=== PATIENT | female | born 1965 | race Asian ===

== ENCOUNTER 2018-03-14 04:19 | Emergency (ER) | payer OTHER ==
[~2018-03-14] VITALS: Ht 160 cm; Wt 54.9 kg
--- NOTE | 2018-03-14 04:42 | NUR ---
PT PRESENTED TO THE ER WITH A C/O HIGH BP, RT SIDED HEADACHE, AND DIZZINESS ACID REMOVER. PT APPEARS ANXIOUS. PT STATED THAT SHE TOOK 4 BENAZAPRIL 5MG TAB SINCE 2200 LAST NIGHT UP TO AN HOUR AGO. PT ALSO TOOK 2 81MG ASPIRIN. PT DID NOT TAKE ANY PAIN MEDICATION FOR THE HEADACHE.
[2018-03-14 04:58] LABS: BASOPHILS % (AUTO) 0.5 % (0.0-2.0); EOSINOPHILS % (AUTO) 3.9 % (0.0-6.0); HEMATOCRIT 45 % (33-45); HEMOGLOBIN 15.4 g/dL (11.5-14.8); LYMPHOCYTES # (AUTO) 2.7 /CMM (0.8-4.8); LYMPHOCYTES % (AUTO) 41.9 % (20.0-44.0); MEAN CORPUSCULAR HGB CONC 34 g/dl (31.0-36.0); MEAN CORPUSCULAR VOLUME 89 fL (82-100); MONOCYTES # (AUTO) 0.4 /CMM (0.1-1.30); MONOCYTES % (AUTO) 5.8 % (2.0-12.0); NEUTROPHILS # (AUTO) 3.1 /CMM (1.8-8.9); NEUTROPHILS % (AUTO) 47.9 % (43.0-81.0); PLATELET COUNT (AUTO) 235 /CMM (150-450); RED BLOOD CELL COUNT(AUTO) 5.03 MIL/uL (4.0-5.2); WHITE BLOOD COUNT (AUTO) 6.4 K/uL (4.3-11.0)
[2018-03-14] MEDS ORDERED: hydrALAZINE HCL IV 20 MG VIAL ONE (04:59)
[2018-03-14] MEDS ORDERED: HYDROMORPHONE INJ 0.5 MG/0.5 ML SYRINGE IV ONE (05:00)
[2018-03-14] MEDS ORDERED: hydrALAZINE HCL IV 20 MG VIAL IV ONE (05:00)
[2018-03-14] MEDS ORDERED: ONDANSETRON HCL/PF - ER 4 MG/2 ML VIAL IV ONE (05:00)
--- NOTE | 2018-03-14 05:08 | NUR ---
PT LEFT FOR CT VIA [facility]
[2018-03-14 05:12] LABS: ALANINE AMINOTRANSFERASE 26 U/L (12-78); ALBUMIN 4.2 g/dL (3.4-5.0); ALKALINE PHOSPHATASE 79 U/L (46-116); ASPARTATE AMINOTRANSFERASE 12 U/L (15-37); BILIRUBIN,DIRECT 0.1 mg/dL (0.0-0.2); BILIRUBIN,TOTAL 0.5 mg/dL (0.2-1.0); CALCIUM, SERUM 9.3 mg/dL (8.5-10.1); CARBON DIOXIDE 23 mmol/L (21-32); CHLORIDE 103 mmol/L (98-107); CREATININE 0.7 mg/dL (0.6-1.3); GLUCOSE 103 mg/dL (74-106); POTASSIUM 3.5 mmol/L (3.5-5.1); SODIUM SERUM 137 mmol/L (136-145); TOTAL PROTEIN, SERUM 7.6 g/dL (6.4-8.2); UREA NITROGEN, BLOOD 14 mg/dL (7-18)
--- NOTE | 2018-03-14 05:16 | NUR ---
PT RETURNED FROM CT.
[2018-03-14] MEDS ORDERED: HYDROMORPHONE INJ 2 MG/ML DISP.SYRIN ONE (05:22)
[2018-03-14] MEDS ORDERED: ONDANSETRON HCL/PF 4 MG/2 ML VIAL ONE (05:22)
--- NOTE | 2018-03-14 05:23 | NUR ---
PT IS REC'ING MEDICATION ORDERED.
--- NOTE | 2018-03-14 05:27 | NUR ---
PT REFUSED PAIN MEDICATION.
--- NOTE | 2018-03-14 05:56 | NUR ---
IV removed. Catheter intact and site benign. Pressure and 4x4 applied to site. No bleeding noted. Patient discharged to home in stable condition. Written and verbal after care instructions given. Patient verbalizes understanding of instruction. PT WAS INSTRUCTED TO INCREASE HER BENAZAPRIL TO 10MG DAILY, PER DR. RIOS. PT HAD SHEPHERD 2-05/07 AND WILL TAKE TYLENOL AT HOME. VSS. PT AMBULATED OUT WITH A STEADY GAIT.
[2018-03-14 05:57] VITALS: BP 166/74
== END 2018-03-14 05:58 | disposition home or self-care (01) ==
LOC: ER 04:23
DX: R51 Headache (principal); I10 Essential (primary) hypertension; F41.9 Anxiety disorder, unspecified; E78.1 Pure hyperglyceridemia
CPT/HCPCS: 36415; 70450-TC; 71045-TC; 80048-TC; 80076-TC; 82962-TC; 84484-TC; 85025-TC; 85730-TC; J0360; J1170; J2405

== ENCOUNTER 2018-07-04 16:15 | Emergency (ER) | payer OTHER ==
[~2018-07-04] VITALS: Ht 160 cm; Wt 54.4 kg
--- NOTE | 2018-07-04 16:30 | NUR ---
patient presented to the ER c/o dizziness, on room air, breathing evenly and unlabored. connected to the monitor and pulse ox. Ambulatory with steady giat. Kept comfortable, will continue to monitor accordingly.
[2018-07-04 16:51] LABS: BASOPHILS # (AUTO) 0.1 /CMM (0.0-0.2); BASOPHILS % (AUTO) 0.9 % (0.0-2.0); EOSINOPHILS % (AUTO) 4.1 % (0.0-6.0); HEMATOCRIT 44 % (33-45); HEMOGLOBIN 14.9 g/dL (11.5-14.8); LYMPHOCYTES # (AUTO) 1.9 /CMM (0.8-4.8); LYMPHOCYTES % (AUTO) 29.1 % (20.0-44.0); MEAN CORPUSCULAR HGB CONC 34 g/dl (31.0-36.0); MEAN CORPUSCULAR VOLUME 89 fL (82-100); MONOCYTES # (AUTO) 0.4 /CMM (0.1-1.30); NEUTROPHILS % (AUTO) 59.9 % (43.0-81.0); PLATELET COUNT (AUTO) 271 /CMM (150-450); RED BLOOD CELL COUNT(AUTO) 4.87 MIL/uL (4.0-5.2); WHITE BLOOD COUNT (AUTO) 6.7 K/uL (4.3-11.0)
[2018-07-04 16:56] LABS: CALCIUM, SERUM 9.2 mg/dL (8.5-10.1); CARBON DIOXIDE 25 mmol/L (21-32); CHLORIDE 102 mmol/L (98-107); CREATININE 0.7 mg/dL (0.6-1.3); GLUCOSE 123 mg/dL (74-106); SODIUM SERUM 137 mmol/L (136-145); UREA NITROGEN, BLOOD 12 mg/dL (7-18)
[2018-07-04 17:01] LABS: ALANINE AMINOTRANSFERASE 31 U/L (12-78); ALBUMIN 4.2 g/dL (3.4-5.0); ALKALINE PHOSPHATASE 87 U/L (46-116); ASPARTATE AMINOTRANSFERASE 25 U/L (15-37); BILIRUBIN,DIRECT 0.1 mg/dL (0.0-0.2); BILIRUBIN,TOTAL 0.5 mg/dL (0.2-1.0)
[2018-07-04 18:11] VITALS: BP 154/66
--- NOTE | 2018-07-04 18:14 | NUR ---
Patient discharged to home in stable condition. Written and verbal after care instructions given. Patient verbalizes understanding of instruction.IV removed. Catheter intact and site benign. Pressure and 4x4 applied to site. No bleeding noted.
== END 2018-07-04 18:13 | disposition home or self-care (01) ==
LOC: ER 16:21
DX: R05 Cough (principal); I10 Essential (primary) hypertension; F41.9 Anxiety disorder, unspecified; E78.5 Hyperlipidemia, unspecified; E78.1 Pure hyperglyceridemia; Z60.2 Problems related to living alone
CPT/HCPCS: 36415; 71045-TC; 80048-TC; 80076-TC; 84484-TC; 85025-TC

== ENCOUNTER 2023-05-13 15:08 | Emergency (ER) | payer OTHER ==
[~2023-05-13] VITALS: Ht 160 cm; Wt 49.9 kg
[2023-05-13 16:07] VITALS: TEMP 98.5
[2023-05-13] MEDS ORDERED: ACETAMINOPHEN ES 500 MG TABLET ONE (17:26)
[2023-05-13] MEDS ORDERED: IBUPROFEN 600 MG TABLET ONE (17:26)
[2023-05-13] MEDS: IBUPROFEN 600 MG TABLET PO ONE (17:28)
[2023-05-13] MEDS: ACETAMINOPHEN ES 500 MG TABLET PO ONE (17:33)
[2023-05-13] MEDS ORDERED: BENA10TA74 PO (17:33)
[2023-05-13] MEDS ORDERED: TRIA15CR2 TP (17:33)
[2023-05-13] MEDS ORDERED: LORA10TA7 PO (17:33)
[2023-05-13] MEDS ORDERED: VITA1TAB55 PO (17:33)
[2023-05-13] MEDS ORDERED: CHOL100043 PO (17:33)
[2023-05-13 18:34] LABS: BASOPHILS # (AUTO) 0.1 K/uL (0.0-0.2); BASOPHILS % (AUTO) 1.7 % (0.0-2.0); EOSINOPHILS # (AUTO) 0.1 K/uL (0.0-0.7); EOSINOPHILS % (AUTO) 1.6 % (0.0-6.0); HEMATOCRIT 42 % (33-45); LYMPHOCYTES # (AUTO) 1.8 K/uL (0.8-4.8); LYMPHOCYTES % (AUTO) 35.8 % (20.0-44.0); MEAN CORPUSCULAR HEMOGLOBIN 30 PG (26.0-33.0); MEAN CORPUSCULAR HGB CONC 33 g/dl (31.0-36.0); MEAN CORPUSCULAR VOLUME 89 fL (82-100); MONOCYTES # (AUTO) 0.2 K/uL (0.1-1.30); NEUTROPHILS # (AUTO) 2.8 K/uL (1.8-8.9); NEUTROPHILS % (AUTO) 55.9 % (43.0-81.0); PLATELET COUNT (AUTO) 239 K/uL (150-450); RED BLOOD CELL COUNT(AUTO) 4.75 MIL/uL (4.0-5.2); RED CELL DISTRIBUTION WIDTH 13.1 % (11.5-15.0)
[2023-05-13 18:41] LABS: CALCIUM, SERUM 8.9 mg/dL (8.5-10.1); CREATININE 0.5 mg/dL (0.6-1.3); POTASSIUM 3.8 mmol/L (3.5-5.1)
[2023-05-13 19:58] VITALS: BP 129/88; O2SAT 99
== END 2023-05-13 19:58 | disposition home or self-care (01) ==
LOC: ER 15:08
DX: R51.9 Headache, unspecified (principal); I10 Essential (primary) hypertension; E78.00 Pure hypercholesterolemia, unspecified; F41.9 Anxiety disorder, unspecified; Z60.2 Problems related to living alone
CPT/HCPCS: 36415; 70450-TC; 80048-TC; 85025-TC; 93970-TC